=== PATIENT | male | born 1970 | race Caucasian/White ===

== ENCOUNTER 2018-03-15 13:16 | Emergency (ER) | payer SELFPAY ==
[2018-03-15 13:19] VITALS: BP 154/99; PULSE 92; RESP 14; TEMP 36.6; O2SAT 98; BMI 31.8
--- NOTE | 2018-03-15 13:33 | CT_ITS ---
STUDY: CT BRAIN WITHOUT CONTRAST REASON FOR EXAM: Male, 47 years old. Headache RADIATION DOSAGE (If Supplied By Facility): CTDIvol = ( 44.99 ) mGy, DLP = ( 846.73 ) mGycm TECHNIQUE: Transaxial CT imaging of the brain was performed without administration of intravenous contrast material. Individualized dose optimization techniques were used for this CT. COMPARISON: None. FINDINGS: Normal soft tissue structures. Normal calvarium. There are bilateral subdural hematomas which are based on their density, appears subacute. One on the left is larger and considered moderate to large, with the greatest thickness of 2.3 cm and extending completely over the left convexity. One on the left is considered small to moderate and has a greatest thickness of approximately 9 mm and also covers the right convexity. There is mass effect from primarily the left subdural hemorrhage, with compression of the ventricles and midline shift from astw-nx-xcmip of approximately 1.1 cm. There is effacement of sulci. Basal cisterns are not effaced. No evidence for transtentorial herniation. No infarcts are seen. Normal white matter tracts of the cerebral hemispheres. Normal basal ganglia and thalami. Normal brainstem. Normal cerebellum. Normal visualized paranasal sinuses. CT/Brain/Head without Contrast IMPRESSION: Bilateral probably subacute subdural hematomas worse on the left, with mass effect. N.B. : The above information has been verbally conveyed by Roberto Recinos MD to [place] Padilla MD, on 03/15/2018 15:23:34 (ET). Electronically Signed: Roberto Recinos MD at 15:24 EST , Service support ,
[2018-03-15] MEDS: Ketorolac 30 MG/ML Syringe IM (13:52)
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
[2018-03-15] MEDS: Protamine Sulfate 50 MG/5 ML Vial IV (14:25)
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
--- NOTE | 2018-03-15 14:25 | RAD_ITS ---
STUDY: X-RAY - PELVIS REASON FOR EXAM: Male, 47 years old. Pain x2 1/2 months TECHNIQUE: One view of the pelvis was obtained. COMPARISON: None. FINDINGS: There is a non-specific bowel gas pattern. Normal visualized soft tissue structures. Normal bilateral iliac wings, sacroiliac joints and visualized sacrum. Normal visualized bilateral superior and inferior pubic rami. Normal pubic symphysis. Normal ischial tuberosities. Normal visualized right femoral head. Normal right acetabulum. Normal right hip joint. Normal visualized left femoral head. Normal left acetabulum. Normal left hip joint. RAD/Pelvis 1 or 2 Views IMPRESSION: Normal x-ray examination of the pelvis. Electronically Signed: Minh Sage MD at 15:45 EST , Service support ,
[2018-03-15 14:36] LABS: Bedside Glucose 271 mg/dL (70-110)
[2018-03-15 15:24] VITALS: BP 170/98; PULSE 94; RESP 22; O2SAT 94
== END 2018-03-15 15:35 | disposition short-term general hospital (02) ==
LOC: ED 14:23
PROVIDERS: Emergency Provider Emergency Medicine
DX: I62.00 Nontraumatic subdural hemorrhage, unspecified (principal); G81.91 Hemiplegia, unspecified affecting right dominant side; H53.2 Diplopia; Z86.718 Personal history of other venous thrombosis and embolism; Z79.01 Long term (current) use of anticoagulants
CPT/HCPCS: 70450; 71045; 72170; 82962; 96365; 96372; 96375; 99284; J7030; A4216

== ENCOUNTER 2022-04-12 03:41 | Inpatient (IN) | payer OTHER, SELFPAY ==
[2022-04-12] VITALS (18 sets, daily range): BP systolic 140–201; BP diastolic 74–96; PULSE 78–97; RESP 13–22; TEMP 36.6–37.1; O2SAT 91–98; BMI 30.2
--- NOTE | 2022-04-12 04:12 | CT_ITS ---
EXAM: CT NECK WITH INTRAVENOUS CONTRAST CLINICAL INDICATION: ? Left tonsillar abscess TECHNIQUE: Helically acquired images were obtained of the neck with intravenous contrast. This CT exam was performed using one or more of the following dose reduction techniques: automated exposure control, adjustment of the mA and/or kV according to patient size, and/or use of iterative reconstruction technique. This report was created using [employer] report generation technology. CONTRAST: IV 75mL Isovue-370 COMPARISON: None. FINDINGS: NASOPHARYNX: Unremarkable. PHARYNX/HYPOPHARYNX: Enlarged palatine tonsils, left greater than right. Significant left parapharyngeal inflammation and swelling extending inferiorly along the pharyngeal mucosa involving aryepiglottic folds, epiglottis, piriform sinuses and false cords. SUBMANDIBULAR/PAROTID GLANDS: Unremarkable. Glands are normal in size. THYROID: Unremarkable. No enlarged or calcified nodules. BONES/JOINTS: No acute fracture. SOFT TISSUES: Unremarkable. VASCULATURE: No acute findings. LYMPH NODES: Unremarkable. No lymphadenopathy. LUNG APICES: Unremarkable as visualized. CT/Soft Tissue Neck WITH Contrast IMPRESSION: Significant left parapharyngeal inflammation and swelling extending inferiorly along the pharyngeal mucosa involving the aryepiglottic folds, epiglottis, piriform sinuses and false cords. There is no discrete abscess, but findings likely indicate supraglottitis. If the process does not respond to treatment, it may lead to airway compromise. Electronically Signed: Arsh Hines MD at 5:13 EST ,
[2022-04-12 04:23] LABS: Absolute Lymphocyte Count 2.05 X10^3/uL (0.83-4.51); Absolute Neutrophil Count 15.1 X10^3/uL (2.0-7.7); Basophil# 0.09 X10^3/uL; Basophil% 0.5 % (0-1); Eosinophil# 0.25 X10^3/uL; Eosinophils% 1.3 % (0-5); Hematocrit 47.7 % (40-54); Hemoglobin 16.6 g/dL (13.0-16.5); Lymphocyte # 2.05 X10^3/ul (0.83-4.51); Lymphocyte % 10.5 % (19-41); Mean Corp Hgb Conc 34.8 g/dL (32-36); Mean Corpuscular Hgb 30.5 pg (27.0-32.0); Mean Corpuscular Volume 87.7 fL (80-94); Monocyte# 2.01 X10^3/uL; Monocyte% 10.3 % (0-10); NRBC Flagged by Analyzer 0 % (0-5); Neutrophil # 15.07 X10^3/uL (2.7-7.7); POSITIVE DIFFERENTIAL YES; Platelet Count 200 K/mm3 (150-450); RBC Distribution Width CV 13.3 % (11.6-14.6); RBC Distribution Width SD 42.9 fl (35.1-43.9); Red Blood Count 5.44 M/mm3 (4.6-6.2); White Blood Count 19.6 K/mm3 (4.4-11.0)
[2022-04-12] MEDS: Ondansetron 4 MG/2 ML Vial IV (04:26)
[2022-04-12] MEDS: Morphine 4 MG/ML Syringe IV (04:26)
[2022-04-12] MEDS: 0.9% Normal Saline 1,000 ML 999 ML IV (04:26)
[2022-04-12 04:29] LABS: Differential Indicated SCAN CRITERIA MET
[2022-04-12 04:44] LABS: Anion Gap 7 (5-15); BUN 10 mg/dL (7-18); BUN/Creat Ratio 14.2 RATIO (10-20); Chloride 104 mmol/L (98-107); EST Glomerular Filtration Rate 124 mL/min (>60); Est Glom Filt Rate - Afr Amer 150 mL/min (>60); Estimated Creatinine Clearance 118.07 ml/min; Glucose 209 mg/dL (74-106); Potassium 4.2 mmol/L (3.5-5.1); Sodium Level 137 mmol/L (136-145)
[2022-04-12 04:49] LABS: Lactic Acid 1.1 mmol/L (0.4-1.9)
--- NOTE | 2022-04-12 05:45 | EDS_ITS ---
HPI History of Present Illness Chief Complaint: Other, Pain/Inj Narrative Narrative: Patient is a 51-year-old male with past medical history of [id number] diabetes and hypertension. He states that over the past 2 days he has been having sore throat that is painful with swallowing. He states he is able to swallow but it is just painful to do so. He states that since his onset he now has left-sided facial swelling and worsening pain and with concern for underlying infection comes in for evaluation [facility] PFS Medical History Diabetes mellitus HLD (hyperlipidemia) Hypertension Obesity Small bowel obstruction Tobacco use Home Medications lisinopril 5 mg tablet 5 mg PO DAILY 04/12/22 [History Last Taken Unknown] metformin 500 mg tablet 500 mg PO BID 04/12/22 [History Last Taken Unknown] Allergy/AdvReac Type Severity Reaction Status Date / Time shellfish derived Allergy Hives Verified 04/12/22 03:48 Family History (Updated 04/12/22 @ 04:[address] Desi Handy MD) Father CAD (coronary artery disease) Grandmother Diabetes Maternal grandmother Lymphoma Maternal grandmother Sister Suicide Surgical History (Updated 04/12/22 @ 04:[address] Desi Handy MD) History of appendectomy History of hernia repair History of surgical removal of intestinal structure Social History (Updated 04/12/22 @ 04:[address] Desi Handy MD) Smoking Status: Current every day smoker tobacco type: cigarettes Smoking packs per day: 1 Smoking cigarettes per day: 20.0 Years smoked: 40 Smoking pack-years: 40.00 alcohol intake: current substance use type: does not use ROS ROS ED Constitutional Constitutional ED: Denies chills or fever(s) ENT ENT ED: Reports sore throat Cardiovascular Cardiovascular: Denies chest pain Respiratory/Chest Respiratory/Chest: Denies cough or dyspnea Gastrointestinal Gastrointestinal: Reports nausea; Denies abdominal pain, diarrhea or vomiting Genitourinary Genitourinary ED: Denies dysuria Musculoskeletal Musculoskeletal: Reports neck pain; Denies myalgias Integumentary Denies rash Neurologic Neurologic: Denies headache(s) Hematologic/Lymphatic Hematologic/Lymphatic: Denies easy bleeding or easy bruising EXAM Physical Exam Const Vital Signs: 04/12/22 03:42 04/12/22 05:26 Temperature 98.0 F 98.0 F Temperature Source Temporal Temporal Pulse Rate 95 86 Respiratory Rate 15 16 Blood Pressure 201/96 H 163/87 H Blood Pressure Mean 131 112 Pulse Ox 96 95 Oxygen Delivery Method Room Air Room Air Positive well nourished and well developed General Appearance ED: well developed HEENT Reports moist mucous membranes HEENT Narrative: There is diffuse erythema in the posterior pharynx with swelling along the left peritonsillar space with deviation towards the midline concerning for development of abscess. There is no trismus change in voice or difficulty with secretions however. Patient does have mild pain with motion of his neck. There is also soft tissue swelling and pain with palpation in the left submandibular gland region without bony deformity or crepitance Eyes PERRL and EOMs intact bilaterally Neck supple Neck Narrative: Soft tissue changes as documented above Resp normal respiratory effort and clear to auscultation bilaterally Cardio regular rate and regular rhythm Extremity normal to inspection Neuro oriented x3 and CN's II-XII intact bilaterally Sensorium / Orientation: alert Psych mental status grossly normal Skin no rashes or lesions noted Skin Narrative: Soft tissue changing to the left neck/face without overlying erythema or warmth MDM MDM MDM Narrative Medical decision making narrative: Patient presented to the ER hypertensive but is in pain and has a history of hypertension so this was not to be unexpected. He does not have trismus or change in voice or difficulty with secretions but the posterior pharynx exam does suggest changes concerning for peritonsillar abscess or possibly retropharyngeal abscess based on the soft tissue swelling and pain with neck motion. Secondary to this patient had basic blood work along with a CT with IV contrast of the neck obtained. Labs show leukocytosis with a white count of 19.6 but there is no lactic acidosis present. The CT scan showed diffuse soft tissue swelling starting along the left tonsil extending down to the epiglottis. There is no drainable fluid collection and at this time there is no obvious airway compromise so there is no need for emergent ENT referral. However based on the patient's worsening symptoms over the past 2 days and high white count and technically is immunosuppressed status because of his diabetes history he will need IV antibiotics and need to be monitored to ensure his airway does not close. Secondary to this the case was discussed with medicine on-call and I do agree to accept the patient at this time Lab Data Attestation: I reviewed the patient's lab results. Labs: Laboratory Results - last 24 hr 04/12/22 04/12/2223 04:20 04:20 04:20 WBC 19.6 H RBC 5.44 Hgb 16.6 H Hct 47.7 MCV 87.7 MCH 30.5 MCHC 34.8 RDW Std Deviation 42.9 RDW Coeff of Adams 13.3 Plt Count 200 MPV 11.0 Immature Gran % (Auto) 0.400 Neut % (Auto) 77.0 H Lymph % (Auto) 10.5 L Prentiss % (Auto) 10.3 H Eos % (Auto) 1.3 Baso % (Auto) 0.5 Absolute Neuts (auto) 15.1 H Absolute Lymphs (auto) 2.05 Nucleated RBC % 0 Diff Path Review May foll Sodium 137 Potassium 4.2 Chloride 104 Carbon Dioxide 26.0 Anion Gap 7 BUN 10 Creatinine 0.70 Estim Creat Clear Calc 118.07 Est GFR (MDRD) Af Amer 150 Est GFR (MDRD) Non-Af 124 BUN/Creatinine Ratio 14.2 Glucose 209 H Lactic Acid 1.1 Calcium 9.0 Radiography Diagnostic Testing: Clinical Impression(s) from Imaging Studies Soft Tissue Neck CT 04/12/22 04:12 IMPRESSION: Significant left parapharyngeal inflammation and swelling extending inferiorly along the pharyngeal mucosa involving the aryepiglottic folds, epiglottis, piriform sinuses and false cords. There is no discrete abscess, but findings likely indicate supraglottitis. If the process does not respond to treatment, it may lead to airway compromise. Electronically Signed: Arsh Hines MD at 5:13 EST , ADDENDUM: 04/12/22 0529 IMPRESSION: Significant left parapharyngeal inflammation and swelling extending inferiorly along the pharyngeal mucosa involving the aryepiglottic folds, epiglottis, piriform sinuses and false cords. There is no discrete abscess, but findings likely indicate supraglottitis. If the process does not respond to treatment, it may lead to airway compromise. N.B. : Cornelius Bucio MD, confirmed on 04/12/2022 05:22:08 (ET) that the healthcare facility has received the radiology report. Electronically Signed: Arsh Hines MD at 5:13 EST , Discharge Plan Triage Chief Complaint: Other, Pain/Inj ED Provider: Cornelius Bucio Dx/Rx/DC Orders Clinical Impression: Supraglottitis, Hypertension, Non-insulin dependent diabetes mellitus Primary Care Provider: Garret Tello Disposition Disposition: Acute Care Hospital [facility] Discharge Date/Time: 04/12/22 06:06
--- NOTE | 2022-04-12 06:01 | HP.PCM.HOS_ITS ---
HPI - General General Date of Admission: 04/12/22 Date of Service: 04/12/22 Chief Complaint: Left facial/jaw pain, edema. HPI Narrative The patient is a 51 y/o M w/ PMHx: Obesity, HTN, HLD, Tobacco use, Obesity, Hx perforated diverticular disease s/p sigmoid colectomy with abdominal recontructive surgery with several hernia repairs, Diabetes mellitus type II who presents to the [facility] ED on 04/12/22 with history of onset sore throat starting ~ 2-3 days prior to current presentation, worse with swallowing steadily worsening with eventual left sided facial and jaw pain with associated swelling/edema to the region, noted dull aching mixed with sharp pain, 6/10 in severity prompting ED evaluation. He denies being short of breath or having any wheezing or stridor. He notes initially when it started he only had a scratchy throat. He denies associated fever or chills. Work-up in the ED included T 98, heart rate 95, BP 201/96, respiratory rate 15, 96% on room air, CBC with WC 19.6, hemoglobin 16.6, platelet 200 with left shift, BMP not marked aside glucose 209, lactic acid 1.1, CT soft tissue neck significant left parapharyngeal inflam mation and swelling extending inferiorly along the pharyngeal mucosa involving the aryepiglotti folds, epiglottis, piriform sinuses and false cords with no discrete abscess but findings indicative of supraglottitis. In the ED patient administered IV zosyn and IV vanc, zofran, morphine and 1L NS bolus. PFSH Medical History Diabetes mellitus HLD (hyperlipidemia) Hypertension Obesity Small bowel obstruction Tobacco use Home Medications lisinopril 5 mg tablet 5 mg PO DAILY 04/12/22 [History Last Taken Unknown] metformin 500 mg tablet 500 mg PO BID 04/12/22 [History Last Taken Unknown] Allergy/AdvReac Type Severity Reaction Status Date / Time shellfish derived Allergy Hives Verified 04/12/22 03:48 Family History (Updated 04/12/22 @ 04:[address] Desi Handy MD) Father CAD (coronary artery disease) Grandmother Diabetes Maternal grandmother Lymphoma Maternal grandmother Sister Suicide Surgical History (Updated 04/12/22 @ 04:[address] Desi Handy MD) History of appendectomy History of hernia repair History of surgical removal of intestinal structure Social History (Updated 04/12/22 @ 04:[address] Desi Handy MD) Smoking Status: Current every day smoker tobacco type: cigarettes Smoking packs per day: 1 Smoking cigarettes per day: 20.0 Years smoked: 40 Smoking pack-years: 40.00 alcohol intake: current substance use type: does not use ROS ROS Narrative Admission Review of Systems: CONSTITUTIONAL: No weight loss, fever, chills, + weakness or fatigue. HEENT: + Sore throat, left jaw pain, worse with swallowing, swelling. Eyes: No visual loss, blurred vision, double vision or yellow sclerae. Ears, Nose, Throat: No hearing loss, sneezing, congestion, runny nose or sore t hroat. SKIN: No rash or itching, lesions, wounds. CARDIOVASCULAR: No chest pain, chest pressure or chest discomfort, palpitations, edema, orthopnea, syncopal events. RESPIRATORY: No shortness of breath, cough or sputum, wheezing, hemoptysis. GASTROINTESTINAL: + anorexia, No nausea, vomiting or diarrhea, abdominal pain, melena, BRBPR. GENITOURINARY: No dysuria, frequency, urgency or retention. NEUROLOGICAL: No headache, dizziness, syncope, paralysis, ataxia, numbness or tingling in the extremities, focal weakness, change in bowel or bladder control, seizure. MUSCULOSKELETAL: + muscle, back pain, joint pain or stiffness. HEMATOLOGIC: No anemia, bleeding or bruising. LYMPHATICS: No enlarged nodes. No history of splenectomy. PSYCHIATRIC: No history of depression or anxiety. ENDOCRINOLOGIC: No reports of sweating, cold or heat intolerance. No polyuria or polydipsia. ALLERGIES: + history of hives. Vital Signs Vital Signs Vital Signs: 04/12/22 03:42 04/12/22 05:26 Temperature 98.0 F 98.0 F Temperature Source Temporal Temporal Pulse Rate 95 86 Respiratory Rate 15 16 Blood Pressure 201/96 H 163/87 H Blood Pressure Mean 131 112 Pulse Ox 96 95 Oxygen Delivery Method Room Air Room Air Weight Weight: 199 lb 1.239 oz Body Mass Index (BMI) 30.2 Physical Exam Narrative Physical Examination: General: Awake, alert, oriented x 3 and cooperative, seated upright in the ED bed, fatigued and uncomfortable appearing. Skin: Normal color, normal turgor, no icterus, no cyanosis. HEENT: AT/NC, EOMI, PERRLA, dry MM, L sided facial edema, TTP L lateral face/jaw, cervical LAD, posterior L sided OP edema, erythematous, no carotid bruits or JVD noted. Lungs: CTA bilaterally, moderate effort, mild decrease BL bases, no rales, ronchi or wheezing. Heart: Mildly tachycardic with regular rhythm; no gallop, rub audible. Abdomen: Soft, obese, NTTP, ND, mildly distant normal BS, no HSM. Extremities: No cyanosis, clubbing, or edema. Neurological: Patient awake, alert, oriented as noted, cognitive function intact; pupils equally reactive to light and accommodation, cranial nerves II- XII grossly normal, moving all 4 extremities, no focal deficits, strength mildly global decrease secondary to acute complaints. Psychiatric: Affect appears fatigued, uncomfortable, ill-appearing, no acute evidence of depressive or anxiety feelings. Results Lab / Micro Data Result Diagrams: 04/12/22 04:20 04/12/22 04:20 Labs: Laboratory Results - last 24 hr 04/12/22 04:20: WBC 19.6 H, RBC 5.44, Hgb 16.6 H, Hct 47.7, MCV 87.7, MCH 30.5, MCHC 34.8, RDW Std Deviation 42.9, RDW Coeff of Adams 13.3, Plt Count 200, MPV 11.0, Immature Gran % (Auto) 0.400, Neut % (Auto) 77.0 H, Lymph % (Auto) 10.5 L, George % (Auto) 10.3 H, Eos % (Auto) 1.3, Baso % (Auto) 0.5, Absolute Neuts (auto) 15.1 H, Absolute Lymphs (auto) 2.05, Nucleated RBC % 0, Diff Path Review July04/12/22 04:20: Sodium 137, Potassium 4.2, Chloride 104, Carbon Dioxide 26.0, Anion Gap 7, BUN 10, Creatinine 0.70, Estim Creat Clear Calc 118.07, Est GFR (MDRD) Af Amer 150, Est GFR (MDRD) Non-Af 124, BUN/Creatinine Ratio 14.2, Glucose 209 H, Calcium 9.0 04/12/22 04:20: Lactic Acid 1.1 Radiology Impression Soft Tissue Neck CT 04/12/22 04:12 IMPRESSION: Significant left parapharyngeal inflammation and swelling extending inferiorly along the pharyngeal mucosa involving the aryepiglottic folds, epiglottis, piriform sinuses and false cords. There is no discrete abscess, but findings likely indicate supraglottitis. If the process does not respond to treatment, it may lead to airway compromise. Electronically Signed: Arsh Hines MD at 5:13 EST , ADDENDUM: 04/12/22 0529 IMPRESSION: Significant left parapharyngeal inflammation and swelling extending inferiorly along the pharyngeal mucosa involving the aryepiglottic folds, epiglottis, piriform sinuses and false cords. There is no discrete abscess, but findings likely indicate supraglottitis. If the process does not respond to treatment, it may lead to airway compromise. N.B. : Cornelius Bucio MD, confirmed on 04/12/2022 05:22:08 (ET) that the healthcare facility has received the radiology report. Electronically Signed: Arsh Hines MD at 5:13 EST , Assessment & Plan Assessment/Plan (1) Supraglottitis: PLAN: Plan The patient is a 51 y/o M w/ PMHx: Obesity, HTN, HLD, Tobacco use, Obesity, Hx perforated diverticular disease s/p sigmoid colectomy with abdominal recontru ctive surgery with several hernia repairs, Diabetes mellitus type II who presents to the [facility] ED on 04/12/22 with history of onset sore throat, worse with swallowing with left sided facial and jaw pain with associated swelling/edema to the region with focal pain, 6/10 in severity, worsening prompting ED evaluation. #1. Left facial/jaw pain secondary to Acute Left Sided Supraglottitis: Will admit to the ICU with Human Resource Assistant consultation to be cautious given airway risk if worsens or does not response to treatment may require intubation, will request ENT consultation, will maintain on IV rocephin and IV vanc given severity of presentation and DM history in case of MRSA with de-escalation as ab le, plan repeat CBC in AM, continue elevation/HOB, NPO status, PRN pain and antiemetic regimen, IVFs, IV PPI. #2. History of perforated bowel with diverticular disease: Patient status post significant abdominal surgical intervention, status post sigmoid colectomy with ventral abdominal reconstructive surgery and several hernia repairs with history of bowel obstruction, encourage continued bowel regimen. #3. Diabetes mellitus type II: Hold oral home regimen, given presentation HgBA1c requested, maintain currently NPO statu as noted #1, q 6 hours accu checks w/ ISS. #4. Hypertension: Continue home regimen including lisinopril, PRN hydralazine. #5. Hyperlipidemia: Previously on a statin therapy, no longer taking per current list, defer to outpatient. #6. Obesity: Weight loss and lifestyle changes encouraged. #7. Tobacco Abuse: Encouraged cessation, inpatient consultation per RT, NR if desired. #8. DVT prophylaxis: SCDs, hold chemoprophylaxis in case of OR needs. Admission Evaluation Time spent evaluating chart, patient history, patient evaluation, care planning and discussion with specialists: 75 minutes. Charges/Coding Visit Charges Inpatient E&M: 52982 Init Hosp L3
--- NOTE | 2022-04-12 06:05 | ED.RN ---
REPORT CALLED TO [facility]
--- NOTE | 2022-04-12 06:15 | NURSING ---
Addendum entered by Kelsey Robison 04/12/22 07:07: pt came to the floor with vanco running via piv, no redness or tenderness noted Original Note: pt admitted to room icu 202, walked from stretcher in [place] to bathroom and back to bed independently. pt placed on the monitor is on ra, denies resp distress or sob but does c/o lt neck tenderness and its painful to swallow. call light with in reach. 0650 dr reinoso at bedside with rn, no distress noted
[2022-04-12 06:56] LABS: Absolute Lymphocyte Count 1.54 X10^3/uL (0.83-4.51); Absolute Neutrophil Count 15.5 X10^3/uL (2.0-7.7); Basophil# 0.07 X10^3/uL; Basophil% 0.4 % (0-1); Hematocrit 47.9 % (40-54); Hemoglobin 15.8 g/dL (13.0-16.5); Lymphocyte # 1.54 X10^3/ul (0.83-4.51); Mean Corpuscular Hgb 29.6 pg (27.0-32.0); Mean Corpuscular Volume 89.9 fL (80-94); Mean Platelet Vol. 10.9 fl (6.2-12.0); Monocyte# 1.75 X10^3/uL; Monocyte% 9.1 % (0-10); NRBC Flagged by Analyzer 0 % (0-5); Neutrophil # 15.53 X10^3/uL (2.7-7.7); Neutrophil % 80.9 % (47-70); POSITIVE DIFFERENTIAL YES; Platelet Count 189 K/mm3 (150-450); RBC Distribution Width CV 13.3 % (11.6-14.6); RBC Distribution Width SD 43.9 fl (35.1-43.9); Red Blood Count 5.33 M/mm3 (4.6-6.2); White Blood Count 19.2 K/mm3 (4.4-11.0)
[2022-04-12 06:57] LABS: Differential Indicated SCAN CRITERIA MET
--- NOTE | 2022-04-12 07:05 | EX.PCM.CONCC ---
Assessment & Plan Assessment/Plan (1) Epiglottitis: PLAN: Plan RECOMMENDATIONS: 1. Continue empiric antimicrobials as ordered. 2. Gentle IV fluid hydration. 3. Await ENT consultation. 4. Encourage incentive spirometer use and mobilize patient as tolerated. 5. The patient should remain n.p.o. for now. 6. We will follow peripherally, given the patient's lack of ICU or pulmonary needs. IMPRESSIONS: 1. Epiglottitis The patient presented with worsening left facial swelling and pain over the course of the last [address] imaging was concerning for epiglottitis. The patient has been initiated on empiric broad-spectrum antimicrobials. His airway remains intact without concern for emergent compromise. ENT consultation is pending. 2. Chronic tobacco dependency I personally spent 3 minutes discussing the deleterious effects of continued tobacco use with the patient, including modalities which could be utilized to achieve a smoke-free lifestyle. The patient declined nicotine replacement therapy while admitted to the hospital. 3. History of diabetes mellitus/hypertension/hyperlipidemia/obesity Complicates care, management, recovery and prognosis. Initiate sliding scale insulin coverage for now. This note was generated with [employer] dictation software. It may contain incorrect words, spelling, and punctuation that were not noted in checking the note before signing. HPI Consult Data Date of Consult: 04/12/22 HPI Narrative Reason for Consultation: Epiglottitis HPI Narrative: The patient is a 51-year-old male, with a history as outlined below, who presented to the emergency department on April 12 with left-sided facial and jaw pain along with sore throat and difficulty swallowing of approximately 3 days duration. The patient has a known history of diabetes mellitus, hypertension, hyperlipidemia and chronic tobacco dependency. The patient currently smokes on average 1 pack of cigarettes per day. He denied any pre-existing respiratory conditions. He currently denies any shortness of breath, chest tightness or wheezing. On presentation to the emergency department, the patient was initially documented to be hypertensive with a blood pressure of 201/96 mmHg. He was otherwise stable on room air. Initial laboratory evaluation revealed an elevated white blood cell count to 19,000. Chemistry profile was unrevealing. Lactate was within normal limits. Blood cultures were obtained. CT soft tissue neck demonstrated parapharyngeal inflammation concerning for supraglottitis. The patient received supplemental IV fluid hydration was started on broad-spectrum antimicrobials. The patient was admitted to the medical intensive care unit. Consultation was placed to ENT. [facility] Medical History Diabetes mellitus HLD (hyperlipidemia) Hypertension Obesity Small bowel obstruction Tobacco use Home Medications lisinopril 5 mg tablet 5 mg PO DAILY 04/12/22 [History Last Taken Unknown] metformin 500 mg tablet 500 mg PO BID 04/12/22 [History Last Taken Unknown] Allergy/AdvReac Type Severity Reaction Status Date / Time shellfish derived Allergy Hives Verified 04/12/22 03:48 Family History (Updated 04/12/22 @ 04:[address] Desi Handy MD) Father CAD (coronary artery disease) Grandmother Diabetes Maternal grandmother Lymphoma Maternal grandmother Sister Suicide Surgical History History of appendectomy History of hernia repair History of surgical removal of intestinal structure Social History (Updated 04/12/22 @ 04:[address] Desi Handy MD) Smoking Status: Current every day smoker tobacco type: cigarettes alcohol intake: current substance use type: does not use ROS ROS Narrative 10 systems were reviewed with pertinent positives as noted in the HPI above. Physical Exam Const alert and no apparent distress General Appearance: cooperative Nutritional Appearance: obese HEENT normocephalic, head/scalp atraumatic and moist oral mucous membranes HEENT Narrative: Swelling of left facial and submandibular space with tenderness to palpation Eyes PERRL, EOMs intact bilaterally and conjunctivae normal Neck supple General: trachea midline Chest inspection of chest normal Resp no use of accessory muscles Auscultation: Negative for rales, rhonchi or wheezes Cardio regular rate and regular rhythm GI normal to inspection, nondistended, normoactive bowel sounds Extremity no clubbing, cyanosis or edema Skin no rashes or lesions noted Neuro CN's II-XII intact bilaterally, moves all extremities and no focal motor deficits Psych cooperative and affect normal Lab / Micro Data Result Diagrams: 04/12/22 06:45 04/12/22 06:45 Labs: Laboratory Results - last 24 hr 04/12/22 04:20: WBC 19.6 H, RBC 5.44, Hgb 16.6 H, Hct 47.7, MCV 87.7, MCH 30.5, MCHC 34.8, RDW Std Deviation 42.9, RDW Coeff of Adams 13.3, Plt Count 200, MPV 11.0, Immature Gran % (Auto) 0.400, Neut % (Auto) 77.0 H, Lymph % (Auto) 10.5 L, Hudspeth % (Auto) 10.3 H, Eos % (Auto) 1.3, Baso % (Auto) 0.5, Absolute Neuts (auto) 15.1 H, Absolute Lymphs (auto) 2.05, Nucleated RBC % 0, Diff Path Review July04/12/22 04:20: Sodium 137, Potassium 4.2, Chloride 104, Carbon Dioxide 26.0, Anion Gap 7, BUN 10, Creatinine 0.70, Estim Creat Clear Calc 118.07, Est GFR (MDRD) Af Amer 150, Est GFR (MDRD) Non-Af 124, BUN/Creatinine Ratio 14.2, Glucose 209 H, Calcium 9.0 04/12/22 04:20: Lactic Acid 1.1 04/12/22 06:45: WBC 19.2 H, RBC 5.33, Hgb 15.8, Hct 47.9, MCV 89.9, MCH 29.6, MCHC 33.0 D, RDW Std Deviation 43.9, RDW Coeff of Adams 13.3, Plt Count 189, MPV 10.9, Immature Gran % (Auto) 0.600, Neut % (Auto) 80.9 H, Lymph % (Auto) 8.0 L, Hudspeth % (Auto) 9.1, Eos % (Auto) 1.0, Baso % (Auto) 0.4, Absolute Neuts (auto) 15.5 H, Absolute Lymphs (auto) 1.54, Nucleated RBC % 0 Radiology Impression Soft Tissue Neck CT 04/12/22 04:12 IMPRESSION: Significant left parapharyngeal inflammation and swelling extending inferiorly along the pharyngeal mucosa involving the aryepiglottic folds, epiglottis, piriform sinuses and false cords. There is no discrete abscess, but findings likely indicate supraglottitis. If the process does not respond to treatment, it may lead to airway compromise. Electronically Signed: Arsh Hines MD at 5:13 EST , ADDENDUM: 04/12/22 0529 IMPRESSION: Significant left parapharyngeal inflammation and swelling extending inferiorly along the pharyngeal mucosa involving the aryepiglottic folds, epiglottis, piriform sinuses and false cords. There is no discrete abscess, but findings likely indicate supraglottitis. If the process does not respond to treatment, it may lead to airway compromise. N.B. : Cornelius Bucio MD, confirmed on 04/12/2022 05:22:08 (ET) that the healthcare facility has received the radiology report. Electronically Signed: Arsh Hines MD at 5:13 EST , Charges/Coding Visit Charges Inpatient E&M: 94495 Init Hosp L3 Behavior Interventions Behavior Intervention: 41109 Smoking Cessation 3-10 min
[2022-04-12 07:10] LABS: Anion Gap 6 (5-15); BUN 9 mg/dL (7-18); BUN/Creat Ratio 14.4 RATIO (10-20); Calcium,Total 8.4 mg/dL (8.5-10.1); Chloride 106 mmol/L (98-107); Creatinine, Serum 0.62 mg/dL (0.70-1.30); EST Glomerular Filtration Rate 143 mL/min (>60); Est Glom Filt Rate - Afr Amer 173 mL/min (>60); Estimated Creatinine Clearance 133.31 ml/min; Glucose 218 mg/dL (74-106); Potassium 4.2 mmol/L (3.5-5.1); Sodium Level 136 mmol/L (136-145)
[2022-04-12] MEDS: Ceftriaxone 1 GM/50 ML BAG IV (07:48)
[2022-04-12] MEDS: 0.9% Normal Saline 1,000 ML 125 ML IV ×3 (07:48→23:41)
[2022-04-12] MEDS: Acetaminophen 325 MG Tablet 650 MG PO ×2 (07:57→14:37)
--- NOTE | 2022-04-12 08:58 | PCM.RX.CS ---
Consult Type of Consult: New start Suspected Infection: Other - Epiglottitis Labs: Sodium 136 mmol/L (136-145) 04/12/22 06:45 Potassium 4.2 mmol/L (3.5-5.1) 04/12/22 06:45 Chloride 106 mmol/L (98-107) 04/12/22 06:45 Carbon Dioxide 24.0 mmol/L (21.0-32.0) 04/12/22 06:45 Anion Gap 6 (5-15) 04/12/22 06:45 BUN 9 mg/dL (7-18) 04/12/22 06:45 Creatinine 0.62 mg/dL (0.70-1.30) L 04/12/22 06:45 Est GFR (MDRD) Af Amer 173 mL/min (>60) 04/12/22 06:45 Est GFR (MDRD) Non-Af 143 mL/min (>60) 04/12/22 06:45 BUN/Creatinine Ratio 14.4 RATIO (10-20) 04/12/22 06:45 Glucose 218 mg/dL (74-106) H 04/12/22 06:45 Goal Trough: 15-20 mcg/mL Pharmacy Plan for Drug Dosing: NEW START IV VANCOMYCIN Consulting Physician: Dr. Handy Indication: Epiglottitis Goal Trough: 15-20 SrCr: 0.62 mg/dL CrCl: > 100 mL/min Comments: 1250mg x1 dose given in ER @ 0558 04/12/22 Vancomycin Dose: 1000mg Q8H to start @ 1400 04/12/22 Pending Level: Vancomycin trough @ 0530 04/13/22 Pharmacy Service will continue to monitor and adjust dosing as required. Labs to be done on [date and time ordered]: Vancomycin trough @ 0530 04/13/22
[2022-04-12] MEDS: Insulin Lispro 100 UNIT/ML INSULN.PEN SC ×3 (09:28→18:12)
[2022-04-12] MEDS: Lisinopril 5 MG Tablet PO (09:28)
[2022-04-12 09:51] LABS: Bedside Glucose 203 mg/dL (74-106)
--- NOTE | 2022-04-12 10:10 | CASEMGMT ---
RN?CM?NEWSWRITER?CM?to room to meet with patient for initial transition planning/care coordination?assessment.?RN?CM?introduced self and role at [facility].? Pt voices understanding and consents to?assessment?at this time.? Pt resting in bed in no distress at this time.? Pt is A/O at this time and answers all questions appropriately.?? Care providers, pharmacy, and demographics verified/updated at this time. PCP: Dr Tello Specialists:none Preferred Pharmacy: [facility] Retail Insurance: MMO Prescription Benefit:?Yes Living Will/HPOA:?Has both LW and HCPOA, who is his mom, Gail Mayorga LNOK: Mom/POA, Gail. (pt states he wishes for his mom to be only called for emergencies). Daughter, Elis. Living Arrangements: Lives alone in one-story home. Independent. Transportation:?Pt states drives self and states no transportation concerns at this time.? DME: Has a functioning glucometer w/supplies. Denies having other DME and denies needs. HHC/SNF: No hx of either. No needs identified. Pt wishes to return home and states has no concerns with going home at time of discharge.? Pt states he smokes 1 PPD. CM?to follow for any discharge planning/needs.? Pt voices no concerns/needs at this time. PLAN:??Home Jesús ORTIZN?RN?CM
[2022-04-12] MEDS: dexAMETHasone 4 MG/ML Vial IV ×2 (13:00→18:01)
[2022-04-12 13:26] LABS: Bedside Glucose 205 mg/dL (74-106)
[2022-04-12 14:20] LABS: M R Staph aureus DNA By PCR Negative (Negative); Probe Check PASS; Specimen Processing Control PASS
[2022-04-12 15:38] LABS: Pathologist Review Reviewed
--- NOTE | 2022-04-12 17:07 | PN_ITS ---
Progress Note Asked to see the patient at the request of Dr. Gary for supraglottitis. History of present illness: Patient is a 51-year-old white male has had a 3-day history of progressive sore throat. It has been worse on the left side compared to the right. He eventually had so much pain that he presented to the emergency room last night. A CAT scan of the neck was performed. This revealed supraglottitis and he was admitted for IV antibiotics. PFSH Medical History Diabetes mellitus HLD (hyperlipidemia) Hypertension Obesity Small bowel obstruction Tobacco use Home Medications lisinopril 5 mg tablet 5 mg PO DAILY 04/12/22 [History Last Taken Unknown] metformin 500 mg tablet 500 mg PO BID 04/12/22 [History Last Taken Unknown] Allergy/AdvReac Type Severity Reaction Status Date / Time shellfish derived AllergyB ? Hives Verified 04/12/22 03:48 Family History?(Updated 04/12/22 @ 04:[address] Desi Handy MD) Father CAD (coronary artery disease)Grandmother Diabetes ?? ? Maternal grandmother Lymphoma ?? ? Maternal grandmotherSister Suicide Surgical History?(Updated 04/12/22 @ 04:[address] Desi Handy MD) History of appendectomy History of hernia repair History of surgical removal of intestinal structure Social History?(Updated 04/12/22 @ 04:[address] Desi Handy MD) Smoking Status:? Current every day smoker tobacco type: cigarettes Smoking packs per day: 1 Smoking cigarettes per day: 20.0 Years smoked: 40 Smoking pack-years: 40.00 alcohol intake:? current substance use type:? does not use ROS ROS Narrative Admission Review of Systems: CONSTITUTIONAL: No weight loss, fever, chills, + weakness or fatigue. HEENT: + Sore throat, left jaw pain, worse with swallowing, swelling. Eyes: No visual loss, blurred vision, double vision or yellow sclerae. Ears, Nose, Throat: No hearing loss, sneezing, congestion, runny nose or sore throat. SKIN: No rash or itching, lesions, wounds. CARDIOVASCULAR: No chest pain, chest pressure or chest discomfort, palpitations, edema, orthopnea, syncopal events. RESPIRATORY: No shortness of breath, cough or sputum, wheezing, hemoptysis. GASTROINTESTINAL: + anorexia, No nausea, vomiting or diarrhea, abdominal pain, melena, BRBPR. GENITOURINARY: No dysuria, frequency, urgency or retention. NEUROLOGICAL: No headache, dizziness, syncope, paralysis, ataxia, numbness or tingling in the extremities, focal weakness, change in bowel or bladder control, seizure. MUSCULOSKELETAL: + muscle, back pain, joint pain or stiffness. HEMATOLOGIC: No anemia, bleeding or bruising. LYMPHATICS: No enlarged nodes. No history of splenectomy. PSYCHIATRIC: No history of depression or anxiety. ENDOCRINOLOGIC: No reports of sweating, cold or heat intolerance. No polyuria or polydipsia. ALLERGIES: + history of hives. Physical exam: Patient is awake alert in no acute distress. Scalp and skull are normal Pupils equal round react light extraocular muscles are intact Nasal exam reveals no purulence Mouth and oropharynx reveal significant soft palate erythema and edema. The left tonsil is more erythematous than the right. Tonsils are 3+ without exudate. The uvula is edematous. Neck is supple no adenopathy or masses. Range of motion is normal Flexible laryngoscopy:. 4% lidocaine spray in the patient's left nasal cavity. After sufficient anesthesia a flexible scope inserted patient's nose into the nasopharynx. He has moderate adenoid tissue. The base of tongue and vallecula are normal. The epiglottis is erythematous with trace edema. It is not obst ructing the airway. The left piriform sinus is completely effaced. There is left false vocal cord and A E fold edema. The true vocal cords are mildly hyperemic without evidence of any airway obstruction. Cord motion is normal CT scan of the neck reveals left parapharyngeal phlegmon involving the oropharynx and hypopharynx. This is effaced. There is no evidence of abscess. Assessment: Left pharyngeal and parapharyngeal phlegmon Left supraglottitis (including epiglottitis) Plan: I completely agree with placing him on Zosyn IV. He should also have IV steroids for 24 hours only. At this time he is in no imminent danger with his airway. His diet should be advanced as tolerated. He will need discharged on oral antibiotics.
--- NOTE | 2022-04-12 17:50 | PCM.HOSP.N ---
Hospitalist Note Patient was seen and examined in the ICU today, I talked with a family member and friend who are visiting the patient also, patient states he is having a little bit of difficulty speaking normally, he can swallow liquids, I asked that speech evaluate him for safe dose of oral intake. I also talked with Dr. Alonzo (ENT), he advised that I change antibiotic coverage and stop his vancomycin. I placed the patient on Unasyn and he also requested patient be placed on corticosteroids, I placed the patient on IV Decadron 4 mg every 6 hours.
[2022-04-12 18:35] LABS: Bedside Glucose 213 mg/dL (74-106)
[2022-04-13] VITALS: BP 133/72; PULSE 72; RESP 16; TEMP 37; O2SAT 96
[2022-04-13] MEDS: dexAMETHasone 4 MG/ML Vial IV ×2 (00:33→05:15)
[2022-04-13] MEDS: Insulin Lispro 100 UNIT/ML INSULN.PEN SC ×2 (00:34→05:15)
[2022-04-13 00:56] LABS: Bedside Glucose 236 mg/dL (74-106)
[2022-04-13 05:17] LABS: Absolute Lymphocyte Count 1.04 X10^3/uL (0.83-4.51); Absolute Neutrophil Count 14.8 X10^3/uL (2.0-7.7); Basophil# 0.04 X10^3/uL; Basophil% 0.2 % (0-1); Eosinophils% 6.8 % (0-5); Hematocrit 44.5 % (40-54); Hemoglobin 14.6 g/dL (13.0-16.5); Lymphocyte # 1.04 X10^3/ul (0.83-4.51); Lymphocyte % 5.9 % (19-41); Mean Corp Hgb Conc 32.8 g/dL (32-36); Mean Corpuscular Hgb 29.7 pg (27.0-32.0); Mean Corpuscular Volume 90.4 fL (80-94); Mean Platelet Vol. 11.1 fl (6.2-12.0); Monocyte# 0.54 X10^3/uL; NRBC Flagged by Analyzer 0 % (0-5); Neutrophil # 14.79 X10^3/uL (2.7-7.7); Neutrophil % 83.4 % (47-70); POSITIVE MORPHOLOGY YES; Platelet Count 214 K/mm3 (150-450); RBC Distribution Width CV 13.4 % (11.6-14.6); RBC Distribution Width SD 44.7 fl (35.1-43.9); Red Blood Count 4.92 M/mm3 (4.6-6.2); White Blood Count 17.7 K/mm3 (4.4-11.0)
[2022-04-13 05:19] LABS: Differential Indicated SCAN CRITERIA MET
[2022-04-13 05:25] VITALS: BP 117/69; PULSE 72; RESP 18; TEMP 36.6; O2SAT 97
[2022-04-13 05:28] VITALS: BP 117/69; PULSE 72; RESP 18; TEMP 36.6; O2SAT 97
[2022-04-13 05:34] LABS: Differential Comment SCANNED
[2022-04-13 05:35] LABS: ALB/GLOB Ratio 0.6 RATIO (0.9-2.4); AST(SGOT) 13 U/L (15-37); Alanine Aminotransfer ALT/SGPT 15 U/L (16-61); Albumin, Serum 2.6 g/dL (3.2-5.0); Alkaline Phosphatase 89 U/L (45-117); Anion Gap 6 (5-15); BUN 10 mg/dL (7-18); BUN/Creat Ratio 15.8 RATIO (10-20); Calcium,Total 8.5 mg/dL (8.5-10.1); Chloride 109 mmol/L (98-107); Creatinine, Serum 0.63 mg/dL (0.70-1.30); EST Glomerular Filtration Rate 141 mL/min (>60); Est Glom Filt Rate - Afr Amer 170 mL/min (>60); Estimated Creatinine Clearance 131.19 ml/min; Globulin 4.1 g/dL (2.2-4.2); Glucose 230 mg/dL (74-106); Potassium 4.5 mmol/L (3.5-5.1); Protein, Total 6.7 g/dL (6.4-8.2); Sodium Level 141 mmol/L (136-145)
[2022-04-13 05:37] LABS: Vancomycin, Trough Level < 0.8 ug/mL (5.0-15.0)
[2022-04-13 05:40] LABS: Bedside Glucose 222 mg/dL (74-106)
[2022-04-13] MEDS: Vancomycin IV 1,000 MG/200 ML BAG 200 MG IV (06:41)
[2022-04-13] MEDS: 0.9% Normal Saline 1,000 ML 125 ML IV (06:41)
--- NOTE | 2022-04-13 06:45 | PCM.RX.CS ---
Consult Pharmacy has been consulted to manage selected antiobiotic: Vancomycin Type of Consult: Follow-up Labs: Sodium 141 mmol/L (136-145) 04/13/22 05:05 Potassium 4.5 mmol/L (3.5-5.1) 04/13/22 05:05 Chloride 109 mmol/L (98-107) H 04/13/22 05:05 Carbon Dioxide 26.0 mmol/L (21.0-32.0) 04/13/22 05:05 Anion Gap 6 (5-15) 04/13/22 05:05 BUN 10 mg/dL (7-18) 04/13/22 05:05 Creatinine 0.63 mg/dL (0.70-1.30) L 04/13/22 05:05 Est GFR (MDRD) Af Amer 170 mL/min (>60) 04/13/22 05:05 Est GFR (MDRD) Non-Af 141 mL/min (>60) 04/13/22 05:05 BUN/Creatinine Ratio 15.8 RATIO (10-20) 04/13/22 05:05 Glucose 230 mg/dL (74-106) H 04/13/22 05:05 Vancomycin Trough < 0.8 ug/mL (5.0-15.0) L 04/13/22 05:05 Microbiology: Microbiology 04/12/22 12:30 Urine, Random Streptococcus pneumoniae Antigen (M - Final Goal Trough: 15-20 mcg/mL Pharmacy Plan for Drug Dosing: Pharmacy Service will continue to monitor and adjust dosing as required. DOSES NOT ORDEREDBY PHARMACY, ORDERED 1G Q8H TO START NOW (629) AND FOLLOW UP TROUGH PRIOR TO 4TH DOSE Follow-Up Labs: Trough Vancomycin Labs to be done on [date and time ordered]: 04/14 @ 0600
--- NOTE | 2022-04-13 07:10 | DCINST_ITS ---
Discharge Instructions Diet Discharge Diet: - (Resume previous diet ) Activity Discharge Activity: Return to Normal Activity Weight Bearing Status: Full weight bearing Follow Up Care Test Results: Test results from this visit will be discussed in further detail at your follow- up appointment, if applicable. Discharge Plan Admission Admit Date/Time: 04/12/22 05:35 Primary Reason for Your Visit: Supraglottitis Attending Provider: Garret Minaya Primary Care Provider: Garret Tello Consulting Providers: Bhargav Redmond ; Desi Handy ; Ketan Alonzo Discharge Orders/Prescriptions Prescriptions: New amoxicillin-pot clavulanate [Augmentin] 500-125 mg tablet 1 tab PO TID Qty: 15 0RF Rx Instructions: Take with food Continued metformin 500 mg Tablet 500 mg PO BID lisinopril 5 mg Tablet 5 mg PO DAILY Referrals / Follow Up: Garret Tello MD [Primary Care Provider] - Within 2 Weeks Disposition Disposition (needs filled in before D/C Order can be placed): Home, Self Care
--- NOTE | 2022-04-13 07:16 | DS.PCM_ITS ---
Providers Date of Admission: 04/12/22 Date of Discharge: 04/13/22 Primary Care Physician: Dr. 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 Assistant / Pulmonary Medicine Routine Consulting Provider: Bhargav Redmond Reason for Consult: Acute Supraglottitis EMERGENT Consult: No Notified: Yes Date Notified: 04/12/22 Time Notified: 05:36 Method of Notification: Text 04/12/22 07:00 Consult: ENT Routine Consulting Provider: Ketan Alonzo Reason for Consult: Acute Supraglottitis EMERGENT Consult: No Notified: Yes Date Notified: 04/12/22 Time Notified: 10:30 Method of Notification: Verbal Reason For Visit: ACUTE SUPRAGLOTTITIS Diagnosis Discharge Diagnosis (1) Epiglottitis: Status: Acute Code(s): J05.10 - Acute epiglottitis without obstruction Plan 1. Supraglottitis #2 essential hypertension #3 type 2 diabetes under poor control Medications at Discharge Home Medications lisinopril 5 mg tablet 5 mg PO DAILY 04/12/22 metformin 500 mg tablet 500 mg PO BID 04/12/22 amoxicillin 500 mg-potassium clavulanate 125 mg tablet (Augmentin) 1 tab PO TID #15 tabs 04/13/22 Hospital Course Operations None Procedures None Summary of Care Provided Minutes Spent on Discharge: 31 Hospital Course: This 51-year-old white male was seen in the emergency room at [facility] with chief complaint of throat pain and difficulty swallowing. This has been going on for 48 hours, patient had no complaints of any breathing difficulties. Work-up in the emergency room included a CAT scan of the soft tissue of the neck which showed evidence of supraglottitis, patient's white blood cell count was elevated, glucose was elevated at 209. Patient was admitted to ICU, placed on IV antibiotics and was seen in consultation by ENT, they recommended corticosteroids and his antibiotic coverage was changed to Unasyn. Patient did well during his hospitalization there was no problems with his airway, he did not require supplemental oxygen during his stay in the hospital. On 04/13/2022, patient was seen and examined: On examination he appeared in good health and spirits. Vital signs as documented. Skin warm and dry and without overt rashes. Neck without JVD, neck was supple, trachea midline, thyroid was normal. Lungs clear bilaterally, normal air movement was noted. Heart exam notable for regular rhythm, normal sounds and absence of murmurs, rubs or gallops. Abdomen unremarkable and without evidence of organomegaly, masses, or abdominal aortic enlargement. Bowel sounds are present, abdomen is not distended. Extremities nonedematous, no cyanosis was noted, no clubbing was noted. Neuro: Cranial nerves II through XII are grossly intact, no focal motor deficits were noted, sensation to light touch and pinprick intact, motor exam 5/5 throughout. Psych: Patient is alert and oriented x3, he does not appear anxious or depressed, he does not appear agitated. Patient appears stable for discharge home on 04/13/2022. Weight / BMI Weight Weight: 90 kg Body Mass Index (BMI) 30.2 ABG / Lab / Microbiology Data Result Diagrams: 04/13/22 05:05 04/13/22 05:05 Laboratory: Laboratory Results - last 24 hr 04/12/22 04:20: Diff Path Review Reviewed 04/12/22 06:45: Diff Path Review May 04/12/22 09:23: POC Glucose 203 H 04/12/22 09:25: MRSA (PCR) Negative 04/12/22 12:37: POC Glucose 205 H 04/12/22 18:11: POC Glucose 213 H 04/13/22 00:33: POC Glucose 236 H 04/13/22 05:05: WBC 17.7 H, RBC 4.92, Hgb 14.6, Hct 44.5, MCV 90.4, MCH 29.7, MCHC 32.8, RDW Std Deviation 44.7 H, RDW Coeff of Adams 13.4, Plt Count 214, MPV 11.1, Immature Gran % (Auto) 0.700, Neut % (Auto) 83.4 H, Lymph % (Auto) 5.9 L, Cherry % (Auto) 3.0, Eos % (Auto) 6.8 H, Baso % (Auto) 0.2, Absolute Neuts (auto) 14.8 H, Absolute Lymphs (auto) 1.04, Nucleated RBC % 0, Differential Comment SCANNED 04/13/22 05:05: Sodium 141, Potassium 4.5, Chloride 109 H, Carbon Dioxide 26.0, Anion Gap 6, BUN 10, Creatinine 0.63 L, Estim Creat Clear Calc 131.19, Est GFR (MDRD) Af Amer 170, Est GFR (MDRD) Non-Af 141, BUN/Creatinine Ratio 15.8, Glucose 230 H, Calcium 8.5, Total Bilirubin 0.60, AST 13 L, ALT 15 L, Alkaline Phosphatase 89, Total Protein 6.7, Albumin 2.6 L, Globulin 4.1, Albumin/Globulin Ratio 0.6 L 04/13/22 05:05: Vancomycin Trough < 0.8 L 04/13/22 05:14: POC Glucose 222 H Microbiology: Microbiology 04/12/22 12:30 Urine, Random Streptococcus pneumoniae Antigen (M - Final D/C Instructions Discharge Diet: - (Resume previous diet ) Weight Bearing Status: Full weight bearing Meaningful Use Info Meaningful Use Diagnoses (Choose all that apply): None applicable Discharge Plan Admission Admit Date/Time: 04/12/22 05:35 Primary Reason for Your Visit: Supraglottitis Attending Provider: Garret Minaya Primary Care Provider: Garret Tello Consulting Providers: Bhargav Redmond ; Desi Handy ; Ketan Alonzo Discharge Orders/Prescriptions Prescriptions: New amoxicillin-pot clavulanate [Augmentin] 500-125 mg tablet 1 tab PO TID Qty: 15 0RF Rx Instructions: Take with food Continued metformin 500 mg Tablet 500 mg PO BID lisinopril 5 mg Tablet 5 mg PO DAILY Referrals / Follow Up: Garret Tello MD [Primary Care Provider] - Within 2 Weeks Disposition Disposition (needs filled in before D/C Order can be placed): Home, Self Care Charges/Coding Visit Charges Inpatient E&M: 22418 Disch Hosp >30min
[2022-04-13 07:30] VITALS: O2SAT 94
[2022-04-13 09:17] VITALS: BP 100/53; PULSE 81; RESP 18; TEMP 36.4; O2SAT 97
[2022-04-13 09:56] LABS: Hemoglobin A1c 8.3 % (3.8-5.6)
[2022-04-15 13:29] LABS: Pathologist Review Reviewed
== END 2022-04-13 09:44 | disposition home or self-care (01) | DRG 153 ==
LOC: ED 04:32 → ICU 06:08
PROVIDERS: Internal Medicine Critical Care Medicine; Admitting Provider Family Medicine; Emergency Provider Emergency Medicine; PCP Family Medicine; Visit Provider Internal Medicine
DX: J04.30 Supraglottitis, unspecified, without obstruction (principal); E11.65 Type 2 diabetes mellitus with hyperglycemia; E78.5 Hyperlipidemia, unspecified; F17.210 Nicotine dependence, cigarettes, uncomplicated; I10 Essential (primary) hypertension; E66.9 Obesity, unspecified; Z90.49 Acquired absence of other specified parts of digestive tract; Z68.30 Body mass index [BMI] 30.0-30.9, adult; Z79.84 Long term (current) use of oral hypoglycemic drugs; Z79.899 Other long term (current) drug therapy
CPT/HCPCS: 70491; 80048; 80053; 80202; 82962; 83036; 83605; 85025; 87040; 87449; 87641; 99284; J7030; J7050; Q9967; A4216; J0295; J2405